=== PATIENT | female | born 1990 | race American Indian/Alaskan Native ===

== ENCOUNTER 2019-09-20 19:24 | Emergency (ER) | payer SELFPAY ==
[2019-09-20 19:52] VITALS: BP 160/117
== END 2019-09-20 22:15 | disposition left against medical advice (07) ==
LOC: ED 19:24
DX: J02.9 Acute pharyngitis, unspecified (principal); Z53.21 Procedure and treatment not carried out due to patient leaving prior to being seen by health care provider

== ENCOUNTER 2020-04-27 06:03 | Inpatient (IN) | payer BC, OTHER ==
[2020-04-27 07:03] LABS: Basophils % (Auto) 0.4 % (0.0-1.8); Eosinophils # (Auto) 0.1 K/mm3 (0.0-0.4); Eosinophils % (Auto) 2.2 % (0.0-4.3); Hematocrit 38.5 % (30.3-42.9); Hemoglobin 12.8 gm/dl (10.1-14.3); Lymphocytes # (Auto) 1.6 K/mm3 (1.2-5.4); Lymphocytes % (Auto) 23.4 % (13.4-35.0); Mean Corpuscular HGB Conc 33 % (30-34); Mean Corpuscular Volume 86 fl (79-97); Monocytes # (Auto) 0.5 K/mm3 (0.0-0.8); Monocytes % (Auto) 7.7 % (0.0-7.3); Platelet Count 498 K/mm3 (140-440); Red Blood Count 4.48 M/mm3 (3.65-5.03); Red Cell Distribution Width 14.6 % (13.2-15.2)
[2020-04-27 07:39] LABS: Bilirubin,Urine NEG (Negative); Blood,Urine NEG (Negative); Color,Urine Yellow (Yellow); Mucus,Urine FEW /HPF; Protein,Urine <15 mg/dL mg/dL (Negative); Urobilinogen,Urine < 2.0 mg/dL (<2.0)
--- NOTE | 2020-04-27 07:39 | Emergency Department Report ---
<FRANCISCA CORONADO - Last Filed: 04/27/20 11:36> ED Abdominal Pain HPI - General Chief Complaint: Abdominal Pain Stated Complaint: STOMACH PAIN Time Seen by Provider: 04/27/20 07:19 - Related Data Allergies Allergy/AdvReac Type Severity Reaction Status Date / Time No Known Allergies Allergy Unverified 09/20/19 19:50 ED Course - Reevaluation(s) Reevaluation #1: 04/27/20 11:36 Transaminitis and right upper quadrant ultrasound are reviewed and appreciated. Case is discussed with gastroenterology, Dr. Bereket Torres, his group will follow in consultation. Physician web production assistant to contact general surgery to follow in consultation, plan is to admit patient to the medical service for further evaluation ED Medical Decision Making - Lab Data Result diagrams: 04/27/20 06:26 04/27/20 06:26 ED Disposition Clinical Impression: Choledocholithiasis Disposition: OP ADMIT IP TO THIS HOSP Condition: Stable Instructions: Abdominal Pain (ED) Referrals: PRIMARY CARE, [Primary Care Provider] - 3-5 Days <CIPRIANO GARLAND - Last Filed: 04/27/20 12:00> ED Abdominal Pain HPI - General PUI?: No Source: patient Mode of arrival: Ambulatory Limitations: No Limitations - History of Present Illness Initial Comments: This is a 29-year-old female presenting with chief complaint of abdominal pain, sudden onset this morning, initially severe but now nearly resolved. She states that she woke up with pain in her lower abdomen, went to the bathroom but still felt pain prompting her to come in to be evaluated. She states that now the pain is primarily epigastric without radiation, described as minimal. She denie s any vomiting but states that she had nausea earlier this morning now improved. Denies any diarrhea or constipation. Denies any urinary or [employer] related complaints. No alleviating or exacerbating factors. Complaint: abdominal pain -: Sudden, hour(s) (2) ED Review of Systems ROS: Stated complaint: STOMACH PAIN Other details as noted in HPI Comment: All other systems reviewed and negative Gastrointestinal: as per HPI ED Past Medical Hx - Past Medical History Hx Asthma: Yes Additional medical history: Vertigo, Right Carpal Tunnel, Morbid Obesity - Surgical History Past Surgical History?: No - Social History Smoking Status: Current Every Day Smoker Substance Use Type: None ED Physical Exam - General Limitations: No Limitations General appearance: alert, in no apparent distress - Head Head exam: Present: atraumatic, normocephalic - Eye Eye exam: Present: normal appearance - ENT ENT exam: Present: mucous membranes moist - Neck Neck exam: Present: normal inspection - Respiratory Respiratory exam: Present: normal lung sounds bilaterally. Absent: respiratory distress - Cardiovascular Cardiovascular Exam: Present: regular rate, normal rhythm. Absent: systolic murmur, diastolic murmur, rubs, gallop - GI/Abdominal GI/Abdominal exam: Present: soft, normal bowel sounds. Absent: distended, tenderness, guarding, rebound - Extremities Exam Extremities exam: Present: normal inspection - Back Exam Back exam: Present: normal inspection - Neurological Exam Neurological exam: Present: alert, oriented X3 - Psychiatric Psychiatric exam: Present: normal affect, normal mood - Skin Skin exam: Present: warm, dry, intact, normal color. Absent: rash ED Course Vital Signs 04/27/20 04/27/20 04/27/20 06:09 06:10 07:58 Temperature 98.2 F Pulse Rate 68 64 69 Respiratory 20 18 Rate Blood Pressure 127/69 O2 Sat by Pulse 70 L 100 100 Oximetry ED Medical Decision Making - Lab Data Result diagrams: 04/27/20 06:26 04/27/20 06:26 - Radiology Data Radiology results: report reviewed cholelithiasis, cbd dilation - Medical Decision Making Patient presenting with abdominal pain that started this morning when she woke up but has now nearly resolved. She states it started in her lower abdomen but has no pain there now and now just feels a little bit of epigastric discomfort. On my exam her abdomen is soft, obese, nondistended with no significant tenderness though she does point to the epigastric area as a source of pain. We will check labs/urinalysis. [facility]- [facility] James- will see [place]- [facility]- will admit Pt with no pain currently, normal LFTs, no pericholecystic fluid, no signs of cholecystitis so abx withheld. - Differential Diagnosis Gastritis, peptic ulcer disease, unlikely acute surgical process Critical care attestation.: If time is entered above; I have spent that time in minutes in the direct care of this critically ill patient, excluding procedure time. ED Disposition Is pt being admited?: Yes Time of Disposition: 12:00
[2020-04-27 08:14] LABS: Alanine Aminotransferase 99 units/L (7-56); Albumin 3.9 g/dL (3.9-5); BUN/Creatinine Ratio 18; Blood Urea Nitrogen 14 mg/dL (7-17); Calcium 9.5 mg/dL (8.4-10.2); Hemolysis Index 2
--- NOTE | 2020-04-27 10:29 | Ultrasound Report ---
LIMITED RUQ ABDOMINAL ULTRASOUND INDICATION: RUQ pain. COMPARISON: No relevant prior imaging study available. FINDINGS: Pancreas: Visualized portions show no significant abnormality. Abdominal Aorta: No significant abnormality. IVC: No significant abnormality. Liver: The liver measures 13.5 cm in length. No significant abnormality. Normal hepatopedal blood fl ow in the main portal vein. Gallbladder: A small amount of sludge and small stones are identified in the gallbladder. No evidence for wall thickening or abnormal dilatation.. Bile ducts: No significant abnormality. Common bile duct measures up to 8.6 mm. Right kidney: No significant abnormality visualized. Free fluid: None. Additional Findings: None. IMPRESSION: Cholelithiasis. Common bile duct is mildly dilated concerning for choledocholithiasis. Signer Name: Ron Cartagena Jr, MD Signed: 04/27/2020 10:25 AM Workstation Name: [id number]
--- NOTE | 2020-04-27 11:50 | History and Physical Report ---
History of Present Illness Chief complaint: My stomach hurts History of present illness: 29 YO Female with Obesity, Asthma,Nicotine Dependence presents to ED for evaluation. Patient states that she has experienced abdominal pain over the past 1 day with progressively worsening symptoms that woke her up from sleep at 0500 hrs. Patient states that her pain is 10/10, constant, associated with nausea. Patient transported to [facility] via private vehicle for further care and evaluation of the aforementioned symptoms. Patient seen and evaluated in the emergency department. Lab and imaging studies reviewed. Patient found to have symptomatic cholelithiasis complicated by elevated liver function tests and suspicion of retained hepatobiliary stones. Patient placed in observation status and admitted to medical floor. Surgical team and gastroenterology team consulted in the emergency department. Patient is pending surgical intervention as per surgical team. Patient denies fever, chills, chest pain, palpitation, productive cough, skin rash, recent ill contacts, ingestion of food/water from new or different sources, or known exposure COVID-19. No medication listed at time of admission. No prior admission for review. Past History Past Medical History: other (See HPI) Past Surgical History: No surgical history, Other (Reviewed) Social history: single, smoking. denies: alcohol abuse, prescription drug abuse Family history: hypertension Medications and Allergies Allergies Allergy/AdvReac Type Severity Reaction Status Date / Time No Known Allergies Allergy Unverified 09/20/19 19:50 Review of Systems Constitutional: no weight loss, no weight gain, no fever, no chills Ears, nose, mouth and throat: no ear pain, no ear discharge, no tinnitis, no nose pain, no nasal congestion Breasts: no change in shape, no swelling, no mass Cardiovascular: no chest pain, no palpitations, no rapid/irregular heart beat, no edema Respiratory: no cough, no cough with sputum, no hemoptysis, no shortness of breath Gastrointestinal: abdominal pain, nausea, no vomiting, no diarrhea, no hemat ochezia, no loss of appetite Genitourinary Female: no pelvic pain, no flank pain, no dysuria, no urinary frequency, no urgency Rectal: no pain, no bleeding Musculoskeletal: no neck pain, no shooting arm pain, no low back pain Integumentary: no rash, no pruritis, no redness, no jaundice Neurological: no transient paralysis, no paralysis, no parathesias, no numbness, no tingling, no seizures Psychiatric: no anxiety, no change in sleep habits, no sleep disturbances, no hypersomnia, no change in appetite, no change in libido, no disorientation Endocrine: no cold intolerance, no polyphagia, no excessive thirst, no polyuria, no excessive sweating Hematologic/Lymphatic: no easy bruising, no easy bleeding, no lymphadenopathy, no lymphedema Allergic/Immunologic: no urticaria, no allergic rhinitis, no persistent infections, no anaphylaxis, no angioedema Exam - Constitutional Vitals: Temp Pulse Resp BP Pulse Ox 98.2 F 69 18 127/69 100 04/27/20 06:09 04/27/20 07:58 04/27/20 07:58 04/27/20 06:09 04/27/20 07:58 General appearance: Present: mild distress, obese - EENT Eyes: Present: PERRL ENT: hearing intact, clear oral mucosa - Neck Neck: Present: supple, normal ROM - Respiratory Respiratory effort: normal Respiratory: bilateral: CTA - Cardiovascular Heart Sounds: Present: S1 & S2. Absent: rub, click - Extremities Extremities: pulses symmetrical, No edema Peripheral Pulses: within normal limits - Abdominal General gastrointestinal: Present: soft, non-tender, non-distended, normal bowel sounds Female genitourinary: Present: normal - Integumentary Integumentary: Present: clear, warm, dry - Musculoskeletal Musculoskeletal: gait normal, strength equal bilaterally - Psychiatric Psychiatric: appropriate mood/affect, intact judgment & insight - Neurologic Neurologic: CNII-XII intact, moves all extremities Results - Labs CBC & Chem 7: 04/27/20 06:26 04/27/20 06:26 Labs: Abnormal lab results 04/27/20 04/27/20 Range/Units 06:26 06:26 Plt Count 498 H (140-440) K/mm3 [place] % (Auto) 7.7 H (0.0-7.3) % Glucose 105 H (65-100) mg/dL AST 170 H (5-40) units/L ALT 99 H (7-56) units/L Assessment and Plan - Patient Problems (1) Choledocholithiasis Current Visit: Yes Status: Acute Plan to address problem: Abdominal ultrasound, surgery team consulted in ED, gastroenterology team consulted in ED, n.p.o., IV fluid resuscitation therapy, bowel rest, patient is pending intervention as per surgical team. (2) Obesity hypoventilation syndrome Current Visit: Yes Status: Acute Plan to address problem: Balanced diet, increase physical activity at discharge, outpatient bariatric surgery evaluation. Pulmonary follow-up as outpatient for sleep study. (3) Nicotine dependence Current Visit: Yes Status: Acute Qualifiers: Nicotine product type: cigarettes Substance use status: in withdrawal Qualified Code(s): F17.213 - Nicotine dependence, cigarettes, with withdrawal Plan to address problem: Supportive care, smoking cessation counseling, behavior change counseling, +15 minutes. (4) DVT prophylaxis Current Visit: Yes Status: Acute Plan to address problem: SCD to bilateral lower extremities while in bed, patient is ambulatory.
[2020-04-27] MEDS ORDERED: ACETAMINOPHEN 325 MG TAB PO PRN (12:00)
[2020-04-27] MEDS: SODIUM CHLORIDE 0.9% 1000 ML 1,000 ML IV SCH (15:55)
--- NOTE | 2020-04-27 16:19 | Gastroenterology Consultation ---
History of Present Illness - Reason for Consult Consult date: 04/27/20 abdominal pain, dilated CBD Requesting physician: MELANIE QUINTERO - History of Present Illness This is a 29 yo female with pmh of asthma presenting with 1 day h/o RUQ abdominal pain and nausea. GI consulted for abdominal pain and possible CBD stones/obstruction. Patient reports having RUQ pain lasting for 45 minutes early this morning after waking up. Associated with nausea but no vomiting. Pain resolved on its own. She had similar episode last week. No clear association with eating. She denies any lower GI symptoms. No blood in the stools. No fever/chills. She had US in the ED. It showed cholelithiasis and mildly dilated CBD. Liver enzymes are mildly elevated. MRCP has been ordered. Patient not on any medication at home. Medication list reviewed inpatient. Past History Past Medical History: other (See HPI) Past Surgical History: No surgical history, Other (Reviewed) Social history: single, smoking. denies: alcohol abuse, prescription drug abuse Family history: hypertension Medications and Allergies Allergies Allergy/AdvReac Type Severity Reaction Status Date / Time No Known Allergies Allergy Unverified 09/20/19 19:50 Active Meds: Active Medications Sodium Chloride (Nacl 0.9% 1000 Ml) 1,000 mls @ 125 mls/hr IV DIRECT GINA Morphine Sulfate (Morphine) 2 mg IV Q4H PRN PRN Reason: Pain , Severe (7-10) Ondansetron HCl (Zofran) 4 mg IV Q8H PRN PRN Reason: Nausea And Vomiting Sodium Chloride (Sodium Chloride Flush Syringe 10 Ml) 10 ml IV BID GINA Sodium Chloride (Sodium Chloride Flush Syringe 10 Ml) 10 ml IV PRN PRN PRN Reason: LINE FLUSH Review of Systems - Review of Systems All systems: negative Constitutional: no weight loss, no weight gain, no fever, no chills Eyes: no change in vision Cardiovascular: no chest pain Respiratory: no cough, no shortness of breath Gastrointestinal: abdominal pain, nausea, no vomiting, no diarrhea, no constipation Neurological: no head injury Psychiatric: no anxiety Exam - Constitutional Vital Signs: Temp Pulse Resp BP Pulse Ox 98.1 F 59 L 14 151/76 95 04/27/20 14:09 04/27/20 14:09 04/27/20 14:04/27/20 14:09 04/27/20 14:09 General appearance: no acute distress - EENT Eyes: EOM intact ENT: hearing intact - Neck Neck: supple - Respiratory Respiratory effort: normal - Cardiovascular Rhythm: regular Heart Sounds: Present: S1 & S2 - Gastrointestinal General gastrointestinal: Present: soft, non-tender, non-distended, normal bowel sounds - Integumentary Integumentary: Present: clear, warm - Neurologic Neurological: alert and oriented x3 - Labs CBC & Chem 7: 04/27/20 06:26 04/27/20 06:26 Lab Results: Laboratory Results - last 24 hr 04/27/20 04/27/20 04/27/20 06:26 06:26 06:26 WBC 6.6 RBC 4.48 Hgb 12.8 Hct 38.5 MCV 86 MCH 29 MCHC 33 RDW 14.6 Plt Count 498 H Lymph % (Auto) 23.4 [place] % (Auto) 7.7 H Eos % (Auto) 2.2 Baso % (Auto) 0.4 Lymph # (Auto) 1.6 [place] # (Auto) 0.5 Eos # (Auto) 0.1 Baso # (Auto) 0.0 Seg Neutrophils % 66.3 Seg Neutrophils # 4.4 Sodium 141 Potassium 3.9 Chloride 102.3 Carbon Dioxide 28 Anion Gap 15 BUN 14 Creatinine 0.8 Estimated GFR > 60 BUN/Creatinine Ratio 18 Glucose 105 H Calcium 9.5 Total Bilirubin 0.30 AST 170 H ALT 99 H Alkaline Phosphatase 71 Total Protein 7.3 Albumin 3.9 Albumin/Globulin Ratio 1.1 Lipase 53 HCG, Qual Negative Urine Color Urine Turbidity Urine pH Ur Specific [place] Urine Protein Urine Glucose (UA) Urine Ketones Urine Blood Urine Nitrite Urine Bilirubin Urine Urobilinogen Ur Leukocyte Esterase Urine WBC (Auto) Urine RBC (Auto) U Epithel Cells (Auto) Urine Mucus 04/27/20 Unknown WBC RBC Hgb Hct MCV MCH MCHC RDW Plt Count Lymph % (Auto) [place] % (Auto) Eos % (Auto) Baso % (Auto) Lymph # (Auto) [place] # (Auto) Eos # (Auto) Baso # (Auto) Seg Neutrophils % Seg Neutrophils # Sodium Potassium Chloride Carbon Dioxide Anion Gap BUN Creatinine Estimated GFR BUN/Creatinine Ratio Glucose Calcium Total Bilirubin AST ALT Alkaline Phosphatase Total Protein Albumin Albumin/Globulin Ratio Lipase HCG, Qual Urine Color Yellow Urine Turbidity Clear Urine pH 5.0 Ur Specific [place] 1.020 Urine Protein <15 mg/dl Urine Glucose (UA) Neg Urine Ketones Neg Urine Blood Neg Urine Nitrite Neg Urine Bilirubin Neg Urine Urobilinogen < 2.0 Ur Leukocyte Esterase Neg Urine WBC (Auto) 1.0 Urine RBC (Auto) 3.0 U Epithel Cells (Auto) 2.0 Urine Mucus Few - Imaging Ultrasound: report reviewed Assessment and Plan 29 yo female here with episodic RUQ pain. # RUQ pain # Cholelithiasis # Elevated liver enzymes # Dilated CBD. - US with gallstones and mildly dilated CBD. - AST and ALT mildly elevated. Normal Tbili and Alk phos. - MRCP ordered and pending. - possible CBD stones but no signs of cholangitis. - Surgery consulted for CCK evaluation. Rec: - monitor LFTs - check acute hepatitis panel. - if MRCP shows CBD stones and bile duct obstruction, will plan for ERCP. - if MRCP is delayed, possible cholecystectomy with IOC with surgery. discussed with Dr. Ramirez with surgery. - will follow.
--- NOTE | 2020-04-27 17:50 | Consultation ---
History of Present Illness Reason for consult: abdominal pain (Hx in chart verified by pt) Past History Past Medical History: other (See HPI) Past Surgical History: No surgical history, Other (Reviewed) Social history: single, smoking. denies: alcohol abuse, prescription drug abuse Family history: hypertension Medications and Allergies Allergies Allergy/AdvReac Type Severity Reaction Status Date / Time No Known Allergies Allergy Unverified 09/20/19 19:50 Active Meds: Active Medications Heparin Sodium (Porcine) (Heparin) 5,000 unit SUB-Q PREOP NR Stop: 04/28/20 23:59 Sodium Chloride (Nacl 0.9% 1000 Ml) 1,000 mls @ 125 mls/hr IV DIRECT GINA Morphine Sulfate (Morphine) 2 mg IV Q4H PRN PRN Reason: Pain , Severe (7-10) Ondansetron HCl (Zofran) 4 mg IV Q8H PRN PRN Reason: Nausea And Vomiting Sodium Chloride (Sodium Chloride Flush Syringe 10 Ml) 10 ml IV BID GINA Sodium Chloride (Sodium Chloride Flush Syringe 10 Ml) 10 ml IV PRN PRN PRN Reason: LINE FLUSH Exam Vital Signs Temp Pulse Resp BP Pulse Ox 98.2 F 68 20 127/69 70 L 04/27/20 06:09 04/27/20 06:09 04/27/20 06:09 04/27/20 06:09 04/27/20 06:09 - General physical appearance Positive: well developed, well nourished, no distress - Respiratory Positive: normal expansion, clear to auscultation - Cardiovascular Rhythm: regular - Extremities Extremities: normal color - Abdomen Abdomen: Present: soft, bowel sounds normal Hernia: none (+mild TTP RUQ/epig; obese; ND; +bs; no peritoneal signs), umbilical (red umb hernia with 1-1.5cm defect) Results - Labs 04/27/20 06:26 04/27/20 06:26 Abnormal lab results 04/27/20 04/27/20 Range/Units 06:26 06:26 Plt Count 498 H (140-440) K/mm3 [place] % (Auto) 7.7 H (0.0-7.3) % Glucose 105 H (65-100) mg/dL AST 170 H (5-40) units/L ALT 99 H (7-56) units/L Diabetes panel 04/27/20 Range/Units 06:26 Sodium 141 (137-145) mmol/L Potassium 3.9 (3.6-5.0) mmol/L Chloride 102.3 (98-107) mmol/L Carbon Dioxide 28 (22-30) mmol/L BUN 14 (7-17) mg/dL Creatinine 0.8 (0.6-1.2) mg/dL Glucose 105 H (65-100) mg/dL Calcium 9.5 (8.4-10.2) mg/dL AST 170 H (5-40) units/L ALT 99 H (7-56) units/L Alkaline Phosphatase 71 (35-129) units/L Total Protein 7.3 (6.3-8.2) g/dL Albumin 3.9 (3.9-5) g/dL Calcium panel 04/27/20 Range/Units 06:26 Calcium 9.5 (8.4-10.2) mg/dL Albumin 3.9 (3.9-5) g/dL Pituitary panel 04/27/20 Range/Units 06:26 Sodium 141 (137-145) mmol/L Potassium 3.9 (3.6-5.0) mmol/L Chloride 102.3 (98-107) mmol/L Carbon Dioxide 28 (22-30) mmol/L BUN 14 (7-17) mg/dL Creatinine 0.8 (0.6-1.2) mg/dL Glucose 105 H (65-100) mg/dL Calcium 9.5 (8.4-10.2) mg/dL Adrenal panel 04/27/20 Range/Units 06:26 Sodium 141 (137-145) mmol/L Potassium 3.9 (3.6-5.0) mmol/L Chloride 102.3 (98-107) mmol/L Carbon Dioxide 28 (22-30) mmol/L BUN 14 (7-17) mg/dL Creatinine 0.8 (0.6-1.2) mg/dL Glucose 105 H (65-100) mg/dL Calcium 9.5 (8.4-10.2) mg/dL Total Bilirubin 0.30 (0.1-1.2) mg/dL AST 170 H (5-40) units/L ALT 99 H (7-56) units/L Alkaline Phosphatase 71 (35-129) units/L Total Protein 7.3 (6.3-8.2) g/dL Albumin 3.9 (3.9-5) g/dL Assessment and Plan 1. Cholelithiasis/transaminasemia-- MRCP nto avail over weekend per staff; d/w GI Dr. Cedillo and we agree pt needs LC with IOC and will get ERCP if necessary depending on IOC results/ability or not to flush out CBD stones if found. 2. Umbilical hernia (small/reducible)- will repair in open UHR at time of LC with IOC Surgery scheduled for tomorrow
[2020-04-27] MEDS: PIPERACIL/TAZOBACTA 4.5/NS 100 4.5 GM/100 ML VIAL IV SCH (21:16)
[2020-04-28] MEDS: SODIUM CHLORIDE 0.9% 1000 ML 1,000 ML IV SCH (01:02)
[2020-04-28] MEDS: PIPERACIL/TAZOBACTA 4.5/NS 100 4.5 GM/100 ML VIAL IV SCH ×3 (04:12→18:06)
[2020-04-28] MEDS ORDERED: HEPARIN 5,000 UNIT/1 ML VIAL SUB-Q NR (07:00)
[2020-04-28 08:10] LABS: Alanine Aminotransferase 361 units/L (7-56); Albumin 3.4 g/dL (3.9-5); BUN/Creatinine Ratio 11; Blood Urea Nitrogen 9 mg/dL (7-17); Calcium 8.9 mg/dL (8.4-10.2); Hemolysis Index 179
--- NOTE | 2020-04-28 08:11 | Gastroenterology Progress Note ---
Assessment and Plan 29 yo female here with episodic RUQ pain. # RUQ pain # Cholelithiasis # Elevated liver enzymes # Dilated CBD. - US with gallstones and mildly dilated CBD. - AST and ALT mildly elevated. Normal Tbili and Alk phos. - MRCP ordered and pending. - possible CBD stones but no signs of cholangitis. - Surgery consulted for CCK evaluation. - clinically stable. pain resolved. Rec: - monitor LFTs. CMP from this AM pending. - check acute hepatitis panel. - patient planned for cholecystectomy with IOC with surgery. discussed with Dr. Ramirez with surgery. - will follow on the results of the surgery. Subjective Date of service: 04/28/20 Interval history: Patient reports having mild upper abdominal pain overnight but resolved. No nausea/vomiting. Objective - Constitutional Vitals: Temp Pulse Resp BP Pulse Ox 97.9 F 66 18 105/52 99 04/28/20 04:55 04/28/20 04:55 04/28/20 04:55 04/28/20 04:55 04/28/20 04:55 General appearance: no acute distress - EENT ENT: hearing intact - Respiratory Respiratory effort: normal - Cardiovascular Rhythm: regular Heart Sounds: Present: S1 & S2 - Gastrointestinal General gastrointestinal: Present: soft, non-tender - Neurologic Neurological: alert and oriented x3 - Labs CBC & Chem 7: 04/27/20 06:26 04/27/20 06:26 Labs: Laboratory Results - last 24 hr 04/27/20 06:26 Sodium 141 Potassium 3.9 Chloride 102.3 Carbon Dioxide 28 Anion Gap 15 BUN 14 Creatinine 0.8 Estimated GFR > 60 BUN/Creatinine Ratio 18 Glucose 105 H Calcium 9.5 Total Bilirubin 0.30 AST 170 H ALT 99 H Alkaline Phosphatase 71 Total Protein 7.3 Albumin 3.9 Albumin/Globulin Ratio 1.1 Lipase 53
--- NOTE | 2020-04-28 08:12 | Anesthesia Consultation ---
Anesthesia Consult and Med Hx Date of service: 04/28/20 - Airway Anesthetic Teeth Evaluation: Good ROM Head & Neck: Inadequate Mental/Hyoid Distance: Adequate Mallampati Class: Class II Intubation Access Assessment: Probably Good - Pulmonary Exam CTA: Yes - Cardiac Exam Cardiac Exam: RRR - Pre-Operative Health Status ASA Pre-Surgery Classification: ASA3, Emergency Proposed Anesthetic Plan: General - Pulmonary Hx Smoking: Yes Hx Asthma: Yes COPD: No Hx Pneumonia: No - Cardiovascular System Hx Hypertension: Yes Hx Valvular Heart Disease: No - Central Nervous System Hx Neuromuscular Disorder: No Hx Seizures: No CVA: No - Endocrine Hx Renal Disease: No Hx Liver Disease: No Hx Insulin Dependent Diabetes: No Hx Non-Insulin Dependent Diabetes: No Hx Thyroid Disease: No - Hematic Hx Anemia: No Hx Sickle Cell Disease: No - Other Systems Hx Alcohol Use: Yes (Occasionally) Hx Substance Use: Yes (Marijuana) Hx Obesity: Yes (BMI-45.9kg) - Additional Comments Anesthesia Medical History Comments: Denied previous anesthesia complications.
--- NOTE | 2020-04-28 08:14 | Anesthesia Day of Surgery ---
Anesthesia Day of Surgery - Day of Surgery Patient Examined: Yes Patient H&P Reviewed: Yes Patient is NPO: Yes Beta Blockers: No Cardiac Clearance: No Pulmonary Clearance: No
[2020-04-28] MEDS ORDERED: ONDANSETRON 4 MG/2 ML INJ ONE (08:18)
[2020-04-28] MEDS ORDERED: HYDROmorphone 1 MG/1 ML INJ ONE ×2 (08:18→09:44)
[2020-04-28] MEDS ORDERED: LIDOCAINE MPF (2%) 20 MG/1 ML VIAL 5 ML ONE (08:18)
[2020-04-28] MEDS ORDERED: ROCURONIUM 50 MG/5 ML INJ IV ONE (08:18)
[2020-04-28] MEDS ORDERED: propofoL 200 MG/20 ML VIAL IV ONE (08:19)
[2020-04-28] MEDS ORDERED: LACTATED RINGERS 1,000 ML ONE ×2 (08:53→09:31)
[2020-04-28] MEDS ORDERED: dexAMETHasone 20 MG/5 ML VIAL ONE (08:53)
[2020-04-28] MEDS ORDERED: LIDOCAINE (1%) 10 MG/1 ML VIAL 20 ML MDV ONE (09:08)
[2020-04-28] MEDS ORDERED: BUPIVACAINE/PF (0.25%) 2.5 MG/ML 30 ML VIAL INFILTRATI ONE (09:08)
[2020-04-28] MEDS ORDERED: BUPIVACAINE/PF (0.5%) 5 MG/1 ML 30 ML VIAL INFILTRATI ONE (09:30)
[2020-04-28] MEDS ORDERED: LIDOCAINE (1%) 10 MG/1 ML VIAL 20 ML MDV INFILTRATI ONE (09:30)
[2020-04-28] MEDS ORDERED: SODIUM CHLORIDE 0.9% IRR 1,500 ML BOTTLE IR ONE (09:30)
[2020-04-28] MEDS ORDERED: NEOSTIGMINE 10MG/10 ML INJ MDV ONE (09:32)
[2020-04-28] MEDS ORDERED: GLYCOPYRROLATE 0.4 MG/2 ML INJ ONE (09:33)
--- NOTE | 2020-04-28 09:58 | Post Operative Note ---
Pre-op diagnosis: cholelithiasis/ poss choledocholithiacsis Post-op diagnosis: same Findings: IOC not possible due to small cystic duct- could not fit catheter No evid cholecystitis; sludge in GB Procedure: Lap Dorinda with attempted IOC Anesthesia: GETA Surgeon: HEBER GARAY Estimated blood loss: minimal Pathology: list (GB) Specimen disposition: to lab Condition: stable Disposition: PACU
--- NOTE | 2020-04-28 10:00 | Progress Note ---
Subjective Date of service: 04/28/20 Narrative: Unfortunately, cystic duct too small to obtain IOC Will check LFTs in AM as was unable to eval for poscss choledocholithiasis or does pt have inc LFTs from other reason (fatty liver- pt iscs very obese, etc) Depending on results, GI MD to determine next plan of action. Objective Vital Signs - 12hr 04/27/20 04/28/20 04/28/20 23:22 04:55 07:53 Temperature 98.1 F 97.9 F 98.0 F Pulse Rate 64 66 70 Respiratory 18 18 18 Rate Blood Pressure 117/53 105/52 127/60 O2 Sat by Pulse 100 99 99 Oximetry - Labs 04/27/20 06:26 04/28/20 07:22 Diabetes panel 04/28/20 Range/Units 07:22 Sodium 136 L (137-145) mmol/L Potassium 5.4 H D (3.6-5.0) mmol/L Chloride 103.4 (98-107) mmol/L Carbon Dioxide 22 (22-30) mmol/L BUN 9 (7-17) mg/dL Creatinine 0.8 (0.6-1.2) mg/dL Glucose 101 H (65-100) mg/dL Calcium 8.9 (8.4-10.2) mg/dL AST 287 H (5-40) units/L ALT 361 H (7-56) units/L Alkaline Phosphatase 80 (35-129) units/L Total Protein 7.1 (6.3-8.2) g/dL Albumin 3.4 L (3.9-5) g/dL Calcium panel 04/28/20 Range/Units 07:22 Calcium 8.9 (8.4-10.2) mg/dL Albumin 3.4 L (3.9-5) g/dL Pituitary panel 04/28/20 Range/Units 07:22 Sodium 136 L (137-145) mmol/L Potassium 5.4 H D (3.6-5.0) mmol/L Chloride 103.4 (98-107) mmol/L Carbon Dioxide 22 (22-30) mmol/L BUN 9 (7-17) mg/dL Creatinine 0.8 (0.6-1.2) mg/dL Glucose 101 H (65-100) mg/dL Calcium 8.9 (8.4-10.2) mg/dL Adrenal panel 04/28/20 Range/Units 07:22 Sodium 136 L (137-145) mmol/L Potassium 5.4 H D (3.6-5.0) mmol/L Chloride 103.4 (98-107) mmol/L Carbon Dioxide 22 (22-30) mmol/L BUN 9 (7-17) mg/dL Creatinine 0.8 (0.6-1.2) mg/dL Glucose 101 H (65-100) mg/dL Calcium 8.9 (8.4-10.2) mg/dL Total Bilirubin 0.40 (0.1-1.2) mg/dL AST 287 H (5-40) units/L ALT 361 H (7-56) units/L Alkaline Phosphatase 80 (35-129) units/L Total Protein 7.1 (6.3-8.2) g/dL Albumin 3.4 L (3.9-5) g/dL
[2020-04-28] MEDS: ONDANSETRON 4 MG/2 ML INJ IV PRN ×2 (13:26→21:05)
[2020-04-28] MEDS: MORPHINE 2 MG/1 ML INJ IV PRN ×2 (13:44→21:04)
--- NOTE | 2020-04-28 14:28 | Post Anesthesia Evaluation ---
- Post Anesthesia Evaluation Patient Participated: Yes Airway Patent: Yes Stable Respiratory Function: Yes Nausea/Vomiting: No Temp > 96.8F: Yes Pain Manageable: Yes Adequeate Hydration: Yes Anesthesia Complications: No Block Receding Appropriately: Not Applicable Patient on Ventilator: No
--- NOTE | 2020-04-28 18:46 | Progress Note ---
Assessment and Plan -- Choledocholithiasis Surgery team consulted in ED, gastroenterology team consulted in ED, s/p cholecystectomy today but cystic duct was too small to obtain IOC if LFT cont to rise planned for ERCP on Thursday --Hyperkalemia, cont iv fluid monitor BMP -- Obesity Balanced diet, increase physical activity at discharge, Pulmonary follow-up as outpatient for sleep study. --Nicotine dependence Supportive care, nicotine patch as needed -- DVT prophylaxis SCD to bilateral lower extremities while in bed, patient is ambulatory. Subjective Date of service: 04/28/20 Interval history: Patient seen and examined. Medical records and medication list reviewed. No acute event overnight noted by the RN. Patient denies any chest pain or difficulty breathing. Patient is tolerating diet. Status post cholecystectomy today Discussed plan of care at bedside with patient. Objective - Constitutional Vitals: Vital Signs - 12hr 04/28/20 04/28/20 04/28/20 07:53 10:05 10:10 Temperature 98.0 F 98 F Pulse Rate 70 66 60 Respiratory 18 17 19 Rate Blood Pressure 127/60 157/86 138/74 O2 Sat by Pulse 99 97 99 Oximetry 04/28/20 04/28/20 04/28/20 10:15 10:20 10:25 Temperature Pulse Rate 62 62 64 Respiratory 21 19 20 Rate Blood Pressure 137/77 142/83 134/78 O2 Sat by Pulse 99 100 100 Oximetry 04/28/20 04/28/20 04/28/20 10:30 10:46 11:10 Temperature Pulse Rate 81 66 69 Respiratory 18 20 Rate Blood Pressure 142/80 144/81 168/88 O2 Sat by Pulse 100 99 89 Oximetry 04/28/20 04/28/20 11:11 16:17 Temperature 97.5 F L 98.7 F Pulse Rate 68 Respiratory 18 Rate Blood Pressure 122/71 O2 Sat by Pulse 98 97 Oximetry General appearance: Present: no acute distress, obese - EENT Eyes: PERRL, EOM intact ENT: hearing intact, clear oral mucosa Ears: bilateral: normal - Neck Neck: supple, normal ROM - Respiratory Respiratory effort: normal Respiratory: bilateral: CTA - Cardiovascular Rhythm: regular Heart Sounds: Present: S1 & S2. Absent: gallop, rub Extremities: pulses intact, No edema, normal color, Full ROM - Gastrointestinal General gastrointestinal: Present: soft, tender (mild), non-distended, normal bowel sounds - Integumentary Integumentary: clear, warm, dry - Musculoskeletal Musculoskeletal: 1, strength equal bilaterally - Neurologic Neurologic: moves all extremities - Psychiatric Psychiatric: memory intact, appropriate mood/affect, intact judgment & insight - Labs CBC & Chem 7: 04/29/20 07:26 04/29/20 07:26 Labs: Abnormal lab results 04/28/20 Range/Units 07:22 Sodium 136 L (137-145) mmol/L Potassium 5.4 H D (3.6-5.0) mmol/L Glucose 101 H (65-100) mg/dL AST 287 H (5-40) units/L ALT 361 H (7-56) units/L Albumin 3.4 L (3.9-5) g/dL - Imaging and cardiology CT scan - abdomen: report reviewed
[2020-04-28] MEDS: ALBUTEROL 2.5 MG/3 ML NEBU IH SCH (19:34)
[2020-04-29] MEDS: PIPERACIL/TAZOBACTA 4.5/NS 100 4.5 GM/100 ML VIAL IV SCH ×2 (02:30→12:35)
[2020-04-29] MEDS: ALBUTEROL 2.5 MG/3 ML NEBU IH SCH (07:31)
[2020-04-29 07:56] VITALS: BP 114/60
[2020-04-29] MEDS: SODIUM CHLORIDE 0.9% 1000 ML 1,000 ML IV SCH (07:58)
[2020-04-29 08:37] LABS: Alanine Aminotransferase 222 units/L (7-56); Albumin 3.3 g/dL (3.9-5); BUN/Creatinine Ratio 6; Blood Urea Nitrogen 5 mg/dL (7-17); Calcium 8.7 mg/dL (8.4-10.2); Hemolysis Index 9
[2020-04-29 08:59] LABS: Basophils % (Auto) 0.2 % (0.0-1.8); Eosinophils % (Auto) 0.1 % (0.0-4.3); Hematocrit 33.6 % (30.3-42.9); Hemoglobin 11.4 gm/dl (10.1-14.3); Lymphocytes # (Auto) 1.1 K/mm3 (1.2-5.4); Lymphocytes % (Auto) 12.5 % (13.4-35.0); Mean Corpuscular HGB Conc 34 % (30-34); Mean Corpuscular Volume 86 fl (79-97); Monocytes # (Auto) 0.8 K/mm3 (0.0-0.8); Platelet Count 460 K/mm3 (140-440); Red Cell Distribution Width 14.4 % (13.2-15.2)
--- NOTE | 2020-04-29 10:03 | Progress Note ---
Assessment and Plan s/p Lap yelena with attempted IOC LFTs down today-- likely passed CBD stone or CBD stone "ball-valving"- d/w Dr cobb of GI and we are in agreement that pt can go home with f/u with her for following LFT trend/etc. Pt knows to return to ER oleg if pain inc/n/v/f/c/ns/etc D/w Dr. Spencer who will d/c pt today Discharge Instructions: 1. Remove outer dressings and ok to shower on Thursday. Underlying steri-strips will fall off on their own in 1-2 weeks. 2. No lifting >20 pounds or strenuous exercise for 6 weeks. 3. Regular diet. 4. No work for 2 weeks, then light duty for another month. 5. Return to ER immediately if your condition worsens. Subjective Date of service: 04/29/20 Patient Reports: Positive: feels better, pain is less, tolerating a regular diet, flatus Objective Vital Signs - 12hr 04/28/20 04/28/20 04/29/20 22:00 23:59 05:17 Temperature 98.2 F 98.0 F Pulse Rate 78 70 Pulse Rate [ Bilateral Throughout] Respiratory 16 16 Rate Respiratory 18 Rate [Abdomen] Respiratory Rate [Bilateral Throughout] Blood Pressure 122/66 121/61 O2 Sat by Pulse 96 99 Oximetry 04/29/20 04/29/20 04/29/20 07:25 07:31 07:37 Temperature 97.9 F Pulse Rate 87 Pulse Rate [ 99 H Bilateral Throughout] Respiratory 18 Rate Respiratory Rate [Abdomen] Respiratory 20 Rate [Bilateral Throughout] Blood Pressure 114/60 O2 Sat by Pulse 99 100 Oximetry - Abdomen soft, tender, bowel sounds normal, other (approp TTP; drsg dry; +bs) - Labs 04/29/20 07:26 04/29/20 07:26 Diabetes panel 04/29/20 Range/Units 07:26 Sodium 140 (137-145) mmol/L Potassium 3.9 D (3.6-5.0) mmol/L Chloride 106.0 (98-107) mmol/L Carbon Dioxide 20 L (22-30) mmol/L BUN 5 L (7-17) mg/dL Creatinine 0.8 (0.6-1.2) mg/dL Glucose 119 H (65-100) mg/dL Calcium 8.7 (8.4-10.2) mg/dL AST 88 H (5-40) units/L ALT 222 H (7-56) units/L Alkaline Phosphatase 67 (35-129) units/L Total Protein 6.8 (6.3-8.2) g/dL Albumin 3.3 L (3.9-5) g/dL Calcium panel 04/29/20 Range/Units 07:26 Calcium 8.7 (8.4-10.2) mg/dL Albumin 3.3 L (3.9-5) g/dL Pituitary panel 04/29/20 Range/Units 07:26 Sodium 140 (137-145) mmol/L Potassium 3.9 D (3.6-5.0) mmol/L Chloride 106.0 (98-107) mmol/L Carbon Dioxide 20 L (22-30) mmol/L BUN 5 L (7-17) mg/dL Creatinine 0.8 (0.6-1.2) mg/dL Glucose 119 H (65-100) mg/dL Calcium 8.7 (8.4-10.2) mg/dL Adrenal panel 04/29/20 Range/Units 07:26 Sodium 140 (137-145) mmol/L Potassium 3.9 D (3.6-5.0) mmol/L Chloride 106.0 (98-107) mmol/L Carbon Dioxide 20 L (22-30) mmol/L BUN 5 L (7-17) mg/dL Creatinine 0.8 (0.6-1.2) mg/dL Glucose 119 H (65-100) mg/dL Calcium 8.7 (8.4-10.2) mg/dL Total Bilirubin 0.40 (0.1-1.2) mg/dL AST 88 H (5-40) units/L ALT 222 H (7-56) units/L Alkaline Phosphatase 67 (35-129) units/L Total Protein 6.8 (6.3-8.2) g/dL Albumin 3.3 L (3.9-5) g/dL
--- NOTE | 2020-04-29 11:09 | Gastroenterology Progress Note ---
Assessment and Plan 29 yo female here with episodic RUQ pain. # RUQ pain # Cholelithiasis # Elevated liver enzymes # Dilated CBD. - US with gallstones and mildly dilated CBD. - AST and ALT mildly elevated and trended down today. Normal Tbili and Alk phos. - clinically stable. pain resolved. - s/p CCK on 04/28/2020. Rec: - ok for discharge with follow up in outpatient clinic for follow up labs with LFTs. - avoid fatty foods. - will sign off. Subjective Date of service: 04/29/20 Interval history: Patient had cholecystectomy and unable to do IOC due to small cystic duct. Patient without any abdominal pain, nausea/vomiting. Objective - Constitutional Vitals: Temp Pulse Resp BP Pulse Ox 97.9 F 99 H 20 114/60 100 04/29/20 07:25 04/29/20 07:37 04/29/20 07:37 04/29/20 07:25 04/29/20 07:31 General appearance: no acute distress - EENT ENT: hearing intact - Respiratory Respiratory effort: normal - Cardiovascular Rhythm: regular Heart Sounds: Present: S1 & S2 - Gastrointestinal General gastrointestinal: Present: soft, non-tender, non-distended - Neurologic Neurological: alert and oriented x3 - Labs CBC & Chem 7: 04/29/20 07:26 04/29/20 07:26 Labs: Laboratory Results - last 24 hr 04/29/20 04/29/20 07:26 07:26 WBC 9.2 RBC 3.90 Hgb 11.4 Hct 33.6 MCV 86 MCH 29 MCHC 34 RDW 14.4 Plt Count 460 H Lymph % (Auto) 12.5 L Campbell % (Auto) 9.0 H Eos % (Auto) 0.1 Baso % (Auto) 0.2 Lymph # (Auto) 1.1 L Campbell # (Auto) 0.8 Eos # (Auto) 0.0 Baso # (Auto) 0.0 Seg Neutrophils % 78.2 H Seg Neutrophils # 7.2 Sodium 140 Potassium 3.9 D Chloride 106.0 Carbon Dioxide 20 L Anion Gap 18 BUN 5 L Creatinine 0.8 Estimated GFR > 60 BUN/Creatinine Ratio 6 Glucose 119 H Calcium 8.7 Total Bilirubin 0.40 AST 88 H ALT 222 H Alkaline Phosphatase 67 Total Protein 6.8 Albumin 3.3 L Albumin/Globulin Ratio 0.9
--- NOTE | 2020-04-29 12:17 | Discharge Summary ---
Providers - Providers Date of Admission: 04/27/20 11:51 Date of discharge: 04/29/20 Attending physician: BRIJESH PLEITEZ 04/27/20 11:35 Consult to Physician [CONS] Urgent Comment: Consulting Provider: BUD CHAPIN Physician Instructions: Reason For Exam: transaminits 04/27/20 11:38 Consult to Physician [CONS] Urgent Comment: Consulting Provider: HEBER GARAY Physician Instructions: Reason For Exam: abd pain trans aminits, ? cbd stone Primary care physician: [employer] DEVELOPER Hospitalization Condition: Stable Disposition: DC-01 TO HOME OR SELFCARE Time spent for discharge: 34 minutes Core Measure Documentation - Palliative Care Palliative Care/ Comfort Measures: Not Applicable - Core Measures Any of the following diagnoses?: none Exam - Constitutional Vitals: Temp Pulse Resp BP Pulse Ox 97.9 F 99 H 20 114/60 100 04/29/20 07:25 04/29/20 07:37 04/29/20 07:37 04/29/20 07:25 04/29/20 07:31 General appearance: Present: no acute distress, obese - EENT Eyes: Present: PERRL ENT: hearing intact, clear oral mucosa - Neck Neck: Present: supple, normal ROM - Respiratory Respiratory effort: normal Respiratory: bilateral: CTA - Cardiovascular Heart Sounds: Present: S1 & S2. Absent: rub, click - Extremities Extremities: pulses symmetrical, No edema Peripheral Pulses: within normal limits - Abdominal General gastrointestinal: Present: soft, non-tender, non-distended, normal bowel sounds - Integumentary Integumentary: Present: clear, warm, dry - Musculoskeletal Musculoskeletal: gait normal, strength equal bilaterally - Psychiatric Psychiatric: appropriate mood/affect, intact judgment & insight - Neurologic Neurologic: CNII-XII intact, moves all extremities Plan Activity: advance as tolerated Weight Bearing Status: Non-Weight Bearing Diet: low fat Follow up with: KILEY BARROSO MD [Primary Care Provider] - 3-5 Days MIN,KAVITHA HALE MD [Staff Physician] - 7 Days
--- NOTE | 2020-04-30 13:43 | Operative Report ---
STAFF PHYSICIAN: Juan Ramirez MD PREOPERATIVE DIAGNOSES: 1. Cholelithiasis. 2. Suspected choledocholithiasis. 3. Umbilical hernia. POSTOPERATIVE DIAGNOSES: 1. Cholelithiasis. 2. Suspected choledocholithiasis. 3. Umbilical hernia. OPERATIONS PERFORMED: 1. Open umbilical hernia repair. 2. Laparoscopic cholecystectomy with attempted intraoperative cholangiogram. INDICATION: A 29-year-old female presented with signs, symptoms, radiologic evidence consistent with biliary disease and an ultrasound showing sludge/stones, also had elevated transaminases, but no elevated alkaline phosphatase or bilirubin. Due to the fact that the MRCP would not be available for several days, Gastrointestinal MD, Dr. Bullock and I made a plan to proceed with operation including an IOC and proceed from there. The patient was brought to the operating room on a semi-urgent basis. ANESTHESIA: General endotracheal anesthesia. SPECIMEN SENT: Gallbladder. FINDINGS: 1. Gallbladder sludge. 2. Possible mild chronic cholecystitis. 3. Intraoperative cholangiogram not possible due to small size of cystic duct despite multiple attempts. 4. One centimeter umbilical hernia defect with omentum involvement, but no bowel involvement. BLOOD LOSS: Minimal. COMPLICATIONS: None. DRAINS: None. DESCRIPTION OF OPERATION: After informed consent was obtained, the patient was taken to the operating room and placed under general endotracheal anesthesia. The patient was prepped and draped in standard surgical fashion. Surgical timeout was performed. Routine antibiotic prophylaxis had been given appropriately. Curvilinear incision was made and dissection was carried down to and around the umbilicus and the umbilical skin was dissected off the incarcerated omentum and a very small 1 cm hernia. The fascial edges were then cleared. The omentum was ensured to be hemostatic and then placed back into the abdominal cavity. This opening was used as a Elia trocar port. Pneumoperitoneum was established. We evaluated, there was no intra-abdominal complication and the omentum was not bleeding. We then placed three 5-mm ports in the epigastric and right upper quadrant under direct visualization without complication. The patient was placed in reverse Trendelenburg, left side down position. The gallbladder was grasped and retracted cephalad and laterally. We then dissected out the critical view, placed a clip at the junction of the cystic duct with the gallbladder and noted a very small cystic duct. Partial cystic ductotomy was performed, but the catheter was unable to be passed despite an adequate opening as the catheter was larger than the cystic duct itself and it would not stretch it open. We therefore had to abort the intraoperative cholangiogram. We clipped twice proximally on the cystic duct and divided it. Cystic artery was clipped and divided in similar fashion. Gallbladder was removed from the liver bed using electrocautery with full hemostasis. The gallbladder was placed in an Endobag, brought out through the umbilical port. Pneumoperitoneum was reestablished. Clips were in good position. Gallbladder bed was hemostatic and ports removed under direct visualization under a low pneumoperitoneum without evidence of bleeding. Elia trocar was removed. Pneumoperitoneum was manually released. 0 Vicryl was used to close the umbilical fascial defect. Two 0 Vicryls and interrupted sutures were used to tack back down the umbilical skin. 3-0 Vicryl was used to close the deeper tissue layers as the patient was very obese and would have a higher seroma rate postoperatively and then local anesthesia was injected and 4-0 Monocryl was used to close all skin incisions. Sterile dressings were applied. The patient was extubated and taken to recovery room in stable fashion. JOB# [id number] LANEY/ALYSSIA
== END 2020-04-29 13:39 | disposition home or self-care (01) | DRG 418 ==
LOC: ED 06:03 → OBSVTOIN 11:51 → 3A 11:51 → 3B-SURG 13:40
PROVIDERS: ADMIT Internal Medicine; ATTEND Internal Medicine
PROC: 0FT44ZZ Resection of Gallbladder, Percutaneous Endoscopic Approach (ICD-10-PCS; principal; 2020-04-28)
DX: K80.70 Calculus of gallbladder and bile duct without cholecystitis without obstruction (principal); Z68.42 Body mass index [BMI] 45.0-49.9, adult; E66.2 Morbid (severe) obesity with alveolar hypoventilation; K42.9 Umbilical hernia without obstruction or gangrene; I10 Essential (primary) hypertension; E87.5 Hyperkalemia; J45.909 Unspecified asthma, uncomplicated; F17.200 Nicotine dependence, unspecified, uncomplicated; Z82.49 Family history of ischemic heart disease and other diseases of the circulatory system
CPT/HCPCS: 36415; 76705; 80053; 81001; 83690; 84703; 85025; 88304; 94640; 96372; G0378; J1100; J1170; J2270; J2405; J2543; J2704; J2710; J7030; J7120; Q9967